=== PATIENT | female | born 1990 | race American Indian/Alaskan Native ===

== ENCOUNTER 2019-12-08 10:35 | Emergency (ER) | payer BC ==
[2019-12-08 10:49] VITALS: BP 139/86
--- NOTE | 2019-12-08 12:08 | Emergency Department Report ---
- General Chief Complaint: Upper Respiratory Infection Stated Complaint: TOREY Time Seen by Provider: 12/08/19 11:55 Source: patient Mode of arrival: Ambulatory Limitations: No Limitations - History of Present Illness Initial Comments: Patient is a 29-year-old female presents emergency room complaints of shortness of breath that began 3 days ago. She states that she has associated mild dry cough, generalized body aches, loss of sense of smell and taste. Patient states that she went to an urgent care 3 days ago and was given a steroid injection and albuterol inhaler. Patient states that she was tested for COVID-19 on November 17 and states it was negative. She denies any fever, nausea, vomiting, diarrhea, chest pain, leg swelling. She denies any known sick contacts, recent travel, recent surgery, hormone use. She is a non-smoker. She denies any past medical history. She denies allergies medications. Last menstrual cycle 11/29/2019. - Related Data Allergies Allergy/AdvReac Type Severity Reaction Status Date / Time No Known Allergies Allergy Unverified 12/08/19 10:42 ED Review of Systems ROS: Stated complaint: TOREY Other details as noted in HPI Comment: All other systems reviewed and negative ED Past Medical Hx - Past Medical History Previous Medical History?: No - Surgical History Past Surgical History?: No - Social History Smoking Status: Never Smoker Substance Use Type: Alcohol ED Physical Exam - General Limitations: No Limitations General appearance: alert, in no apparent distress - Head Head exam: Present: atraumatic, normocephalic - Eye Eye exam: Present: normal appearance - ENT ENT exam: Present: mucous membranes moist - Respiratory Respiratory exam: Present: normal lung sounds bilaterally. Absent: respiratory distress, wheezes, rales, rhonchi, stridor, chest wall tenderness, accessory muscle use, decreased breath sounds, prolonged expiratory - Cardiovascular Cardiovascular Exam: Present: regular rate, normal rhythm, normal heart sounds. Absent: systolic murmur, diastolic murmur, rubs, gallop - Neurological Exam Neurological exam: Present: alert, oriented X3 - Psychiatric Psychiatric exam: Present: normal affect, depressed - Skin Skin exam: Present: warm, dry, intact ED Course Vital Signs 12/08/19 12/08/19 10:48 10:49 Temperature 99.5 F 99.5 F Pulse Rate 103 H 103 H Respiratory 18 18 Rate Blood Pressure 139/86 Blood Pressure 139/86 [Right] O2 Sat by Pulse 99 99 Oximetry - Reevaluation(s) Reevaluation #1: 12/08/19 12:36 I ambulated patient down the hallway and oxygen remained 100% on room air, patient's heart rate was between 120 and 130, patient states that she feels shortness of breath and chest tightness, labs and EKG ordered ED Medical Decision Making - Lab Data Result diagrams: 12/08/19 12:54 12/08/19 12:54 Lab Results 12/08/19 12/08/19 12/08/19 Range/Units 12:54 12:54 12:54 WBC 4.9 (4.5-11.0) K/mm3 RBC 4.38 (3.65-5.03) M/mm3 Hgb 13.9 (10.1-14.3) gm/dl Hct 39.4 (30.3-42.9) % MCV 90 (79-97) fl MCH 32 (28-32) pg MCHC 35 H (30-34) % RDW 14.2 (13.2-15.2) % Plt Count 309 (140-440) K/mm3 Lymph % (Auto) 22.5 (13.4-35.0) % Barnes % (Auto) 8.9 H (0.0-7.3) % Eos % (Auto) 0.2 (0.0-4.3) % Baso % (Auto) 0.6 (0.0-1.8) % Lymph # 1.1 L (1.2-5.4) K/mm3 Barnes # 0.4 (0.0-0.8) K/mm3 Eos # 0.0 (0.0-0.4) K/mm3 Baso # 0.0 (0.0-0.1) K/mm3 Seg Neutrophils % 67.8 (40.0-70.0) % Seg Neutrophils # 3.3 (1.8-7.7) K/mm3 D-Dimer < 135.00 (0-234) ng/mlDDU Sodium 138 (137-145) mmol/L Potassium 3.6 (3.6-5.0) mmol/L Chloride 100.8 (98-107) mmol/L Carbon Dioxide 24 (22-30) mmol/L Anion Gap 17 mmol/L BUN 11 (7-17) mg/dL Creatinine 0.8 (0.7-1.2) mg/dL Estimated GFR > 60 ml/min BUN/Creatinine Ratio 14 % Glucose 78 (65-100) mg/dL Calcium 8.8 (8.4-10.2) mg/dL Magnesium (1.7-2.3) mg/dL Total Bilirubin 0.30 (0.1-1.2) mg/dL AST 23 (5-40) units/L ALT 38 (7-56) units/L Alkaline Phosphatase 59 (35-129) units/L Total Creatine Kinase (30-135) units/L Troponin T < 0.010 (0.00-0.029) ng/mL Total Protein 7.3 (6.3-8.2) g/dL Albumin 4.0 (3.9-5) g/dL Albumin/Globulin Ratio 1.2 % TSH (0.270-4.200) mlU/mL 12/08/19 12/08/19 Range/Units 12:54 12:54 WBC (4.5-11.0) K/mm3 RBC (3.65-5.03) M/mm3 Hgb (10.1-14.3) gm/dl Hct (30.3-42.9) % MCV (79-97) fl MCH (28-32) pg MCHC (30-34) % RDW (13.2-15.2) % Plt Count (140-440) K/mm3 Lymph % (Auto) (13.4-35.0) % Barnes % (Auto) (0.0-7.3) % Eos % (Auto) (0.0-4.3) % Baso % (Auto) (0.0-1.8) % Lymph # (1.2-5.4) K/mm3 Barnes # (0.0-0.8) K/mm3 Eos # (0.0-0.4) K/mm3 Baso # (0.0-0.1) K/mm3 Seg Neutrophils % (40.0-70.0) % Seg Neutrophils # (1.8-7.7) K/mm3 D-Dimer (0-234) ng/mlDDU Sodium (137-145) mmol/L Potassium (3.6-5.0) mmol/L Chloride (98-107) mmol/L Carbon Dioxide (22-30) mmol/L Anion Gap mmol/L BUN (7-17) mg/dL Creatinine (0.7-1.2) mg/dL Estimated GFR ml/min BUN/Creatinine Ratio % Glucose (65-100) mg/dL Calcium (8.4-10.2) mg/dL Magnesium 2.00 (1.7-2.3) mg/dL Total Bilirubin (0.1-1.2) mg/dL AST (5-40) units/L ALT (7-56) units/L Alkaline Phosphatase (35-129) units/L Total Creatine Kinase 73 (30-135) units/L Troponin T (0.00-0.029) ng/mL Total Protein (6.3-8.2) g/dL Albumin (3.9-5) g/dL Albumin/Globulin Ratio % TSH 1.020 (0.270-4.200) mlU/mL - EKG Data EKG shows normal: sinus rhythm, intervals, QRS complexes, ST-T waves Rate: normal - EKG Data 12/08/19 15:02 LAD no STEMI - Radiology Data Radiology results: report reviewed CHEST 2 VIEWS INDICATION / CLINICAL INFORMATION: SOB. Not feeling well since . COMPARISON: None available. FINDINGS: SUPPORT DEVICES: None. HEART / MEDIASTINUM: The heart size and pulmonary vasculature are normal. LUNGS / PLEURA: No significant pulmonary or pleural abnormality. No pneumothorax. ADDITIONAL FINDINGS: No significant additional findings. IMPRESSION: No acute findings. Signer Name: Ollie Hernandez MD Signed: 12/08/2019 12:09 PM Workstation Name: [id number] Transcribed By: RT Dictated By: Ollie Hernandez MD Electronically Authenticated By: Ollie Hernandez MD Signed Date/Time: 12/08/19 120 DD/ 1208 TD/TT: - Medical Decision Making Patient is a 29-year-old female presents emergency room complaints of shortness of breath that began 3 days ago. She states that she has associated mild dry cough, generalized body aches, loss of sense of smell and taste. Patient states that she went to an urgent care 3 days ago and was given a steroid injection and albuterol inhaler. Patient states that she was tested for COVID-19 on November 17 and states it was negative. She denies any fever, nausea, vomiting, diarrhea, chest pain, leg swelling. She denies any known sick contacts, recent travel, recent surgery, hormone use. She is a non-smoker. She denies any past medical history. She denies allergies medications. Last menstrual cycle 11/29/2019. Initial vitals with mildly elevated heart rate. Chest x-ray with no acute process. Lungs are clear bilaterally, no wheezing, no rales, no rhonchi. Patient was ambulated in the emergency department for 2 minutes and maintain sats of 100% on room air, upon ambulation her heart rate did increase. Labs and EKG ordered. EKG shows normal heart rate and within normal limits. Labs are normal. No anemia, d-dimer is negative, troponin is negative. Patient low risk based on Wells criteria for PE. Her heart rate was normal and her EKG. Given that patient is presenting with URI symptoms during COVID-19 pandemic, discussed self quarantine with patient, discussed in detail with patient very strict return precautions, discussed supportive care and symptomatic treatment importance of oral hydration. Advised patient Please increase your fluid intake over the next several days. May take Tylenol as needed for fever or body aches. May take afpz-dgi-pocxrfb cold symptom relief medication such as Mucinex or TheraFlu. Get plenty of rest. Follow-up with a primary care doctor for reexamination. Return to emergency room immediately for any new or worsening symptoms including but not limited to difficulty breathing, shortness of breath, severe chest pain, unable to tolerate by mouth intake, etc. Please self quarantine for 2 weeks from the onset of your symptoms. Please do not go out in public. If you are around others at home please wear a mask. If you need to cough or sneeze please do so in a napkin and immediately throw it away and immediately wash your hands. Wash your hands frequently. Wipe everything down. Recommend for you to get COVID-19 testing, may have this done at primary care doctor, health department, [facility] testing centers. - Differential Diagnosis URI, PNA, ACS, CHF, pleural effusion, pericarditis, PE, bronchitis, asthma Critical care attestation.: If time is entered above; I have spent that time in minutes in the direct care of this critically ill patient, excluding procedure time. ED Disposition Clinical Impression: Shortness of breath Upper respiratory infection Qualifiers: URI type: unspecified URI Qualified Code(s): J06.9 - Acute upper respiratory infection, unspecified Disposition: DC-01 TO HOME OR SELFCARE Is pt being admited?: No Does the pt Need Aspirin: No Condition: Stable Instructions: COVID-19, Viral Syndrome (ED) Additional Instructions: Please increase your fluid intake over the next several days. May take Tylenol as needed for fever or body aches. May take zqch-yli-lqvvqko cold symptom relief medication such as Mucinex or TheraFlu. Get plenty of rest. Follow-up with a primary care doctor for reexamination. Return to emergency room immediately for any new or worsening symptoms including but not limited to difficulty breathing, shortness of breath, severe chest pain, unable to tolerate by mouth intake, etc. Please self quarantine for 2 weeks from the onset of your symptoms. Please do not go out in public. If you are around others at home please wear a mask. If you need to cough or sneeze please do so in a napkin and immediately throw it away and immediately wash your hands. Wash your hands frequently. Wipe everything down. Recommend for you to get COVID-19 testing, may have this done at primary care doctor, health department, [facility] testing centers. Referrals: MARY ROBERTS MD [Staff Physician] - 2-[address] [facility] [Provider Group] - 2-3 Days [facility] [place] [Outside] - 2-3 Days [facility] [Outside] - 2-3 Days Time of Disposition: 15:03 Print Language: FRISIAN
--- NOTE | 2019-12-08 12:14 | XRay Report ---
CHEST 2 VIEWS INDICATION / CLINICAL INFORMATION: SOB. Not feeling well since . COMPARISON: None available. FINDINGS: SUPPORT DEVICES: None. HEART / MEDIASTINUM: The heart size and pulmonary vasculature are normal. LUNGS / PLEURA: No significant pulmonary or pleural abnormality. No pneumothorax. ADDITIONAL FINDINGS: No significant additional findings. IMPRESSION: No acute findings. Signer Name: Ollie Hernandez MD Signed: 12/08/2019 12:09 PM Workstation Name: [id number]
[2019-12-08 13:21] LABS: Basophils % (Auto) 0.6 % (0.0-1.8); Eosinophils % (Auto) 0.2 % (0.0-4.3); Hematocrit 39.4 % (30.3-42.9); Hemoglobin 13.9 gm/dl (10.1-14.3); Lymphocytes # (Auto) 1.1 K/mm3 (1.2-5.4); Lymphocytes % (Auto) 22.5 % (13.4-35.0); Mean Corpuscular HGB Conc 35 % (30-34); Mean Corpuscular Volume 90 fl (79-97); Monocytes # (Auto) 0.4 K/mm3 (0.0-0.8); Monocytes % (Auto) 8.9 % (0.0-7.3); Platelet Count 309 K/mm3 (140-440); Red Blood Count 4.38 M/mm3 (3.65-5.03); Red Cell Distribution Width 14.2 % (13.2-15.2)
[2019-12-08 13:40] LABS: Alanine Aminotransferase 38 units/L (7-56); BUN/Creatinine Ratio 14; Blood Urea Nitrogen 11 mg/dL (7-17); Calcium 8.8 mg/dL (8.4-10.2); Hemolysis Index 28
== END 2019-12-08 15:10 | disposition home or self-care (01) ==
LOC: ED 10:35
DX: J06.9 Acute upper respiratory infection, unspecified (principal)
CPT/HCPCS: 36415; 71046; 80053; 82550; 83735; 84443; 84484; 85025; 85379; 93005

== ENCOUNTER 2020-09-20 21:20 | Emergency (ER) | payer SELFPAY ==
[2020-09-20 21:37] VITALS: BP 126/91
[2020-09-20] MEDS ORDERED: diphenhydrAMINE 50 MG/ML VIAL IV ONE (22:44)
[2020-09-20] MEDS ORDERED: dexAMETHasone 20 MG/5 ML VIAL IV ONE (22:44)
[2020-09-20] MEDS ORDERED: FAMOTIDINE 20 MG/2 ML INJ IV ONE (22:44)
--- NOTE | 2020-09-20 22:47 | Emergency Department Report ---
ED Rash HPI - HPI Chief Complaint: Skin Rash Stated Complaint: POSSIBLE ALLERGIC REACTION/RASH Time Seen by Provider: 09/20/20 22:41 Duration: Today Rash Symptoms: Yes Itching, No Facial Swelling, No Tongue/Oral Swelling, No Breathing Difficulties, No Choking Sensation, No Wheezing/Dyspnea, No Peeling, No Blistering, No Fever, No Lightheaded, No Malaise, No Myalgias Severity: moderate Other History: 63-ravg[age]ypr-month-old obese -[place] female presents to the emergency room for 1 day history of rash that is itchy red bumps. Patient states that it started today. States that she last took Benadryl 4 hours ago. She reports that the rash is all over. She denies any shortness of breath, no wheezing, no difficulty swallowing no shortness of breath. Patient denies any new foods, new detergents, new body wash, no new soaps. She states she did get fully vaccinated for Covid 2 weeks ago. She reports ironically her sister is has the same rash that started today as well. ED Review of Systems ROS: Stated complaint: POSSIBLE ALLERGIC REACTION/RASH Other details as noted in HPI ED Past Medical Hx - Past Medical History Previous Medical History?: No - Surgical History Past Surgical History?: No - Social History Smoking Status: Never Smoker Substance Use Type: None - Medications Home Medications: Home Medications Medication Instructions Recorded Confirmed Last Taken Type Ibuprofen [Motrin 800 MG tab] 800 mg PO Q8HR PRN #30 tablet 12/15/19 Unknown Rx dexAMETHasone [Decadron] 4 mg PO Q12H 2 Days #4 tablet 12/15/19 Unknown Rx guaiFENesin/CODEINE [Robitussin AC] 5 ml PO Q6H PRN #120 ml 12/15/19 Unknown Rx Cetirizine HCl 10 mg PO QDAY 10 Days #10 tablet 09/20/20 Unknown Rx Famotidine [Pepcid] 20 mg PO BID 10 Days #20 tablet 09/20/20 Unknown Rx predniSONE [Deltasone] 40 mg PO QDAY 5 Days #10 tab 09/20/20 Unknown Rx Rash Exam - Exam General: Vital signs noted. No distress. Alert and acting appropriately. HEENT: No Periorbital Edema, No Conjuctival Injection, No Chemosis, No Perioral Edema, No Tongue Edema, No Uvular Edema, No Compromised Airway, No Drooling Lungs: Yes Good Air Exchange (Normal Breath Sounds), No Wheezes, No Ronchi, No Stridor, No Cough, No Labored Respirations, No Retractions, No Use of Accessory Muscles, No Other Abnormal Lung Sounds Heart: Yes Regular, No Murmur Skin: Yes Urticarial Rash, Yes Erythema Other: Positive: Abdomen Normal, Neurologic Normal, Musculoskeletal Normal ED Course Vital Signs 09/20/20 21:34 Temperature 98 F Pulse Rate 98 H Respiratory 16 Rate Blood Pressure 126/91 O2 Sat by Pulse 98 Oximetry ED Medical Decision Making - Medical Decision Making 81-mxpi[age]kuo-month-old obese -[place] female presents to the emergency room for 1 day history of rash that is itchy red bumps. Patient states that it started today. States that she last took Benadryl 4 hours ago. She reports that the rash is all over. She denies any shortness of breath, no wheezing, no difficulty swallowing no shortness of breath. Patient denies any new foods, new detergents, new body wash, no new soaps. She states she did get fully vaccinated for Covid 2 weeks ago. She reports ironically her sister is has the same rash that started today as well. Patient is an alert IV, Benadryl 25 mg IV, dexamethasone 10 mg IV and Pepcid 20 mg IV. Patient reports that she prefers the p.o. medication as she does not have time to wait. Discussed with patient to return if any worsening symptoms. Critical care attestation.: If time is entered above; I have spent that time in minutes in the direct care of this critically ill patient, excluding procedure time. ED Disposition Clinical Impression: Urticaria, Allergic reaction Disposition: DC-01 TO HOME OR SELFCARE Is pt being admited?: No Does the pt Need Aspirin: No Condition: Stable Instructions: Hives, Pztu-on-[id number] Additional Instructions: Please take medications as prescribed. Return back to the emergency room if any worsening symptoms. Prescriptions: Cetirizine HCl 10 mg PO QDAY 10 Days #10 tablet predniSONE [Deltasone] 40 mg PO QDAY 5 Days #10 tab Famotidine [Pepcid] 20 mg PO BID 10 Days #20 tablet Referrals: MARTÍN GASPAR MD [Referring] - 3-5 Days [facility] [Provider Group] - 3-5 Days [facility] [Provider Group] - 3-5 Days Forms: Work/School Release Form(ED)
== END 2020-09-21 00:27 | disposition home or self-care (01) ==
LOC: ED 21:20
DX: T78.40XA Allergy, unspecified, initial encounter (principal); L50.9 Urticaria, unspecified; Z79.899 Other long term (current) drug therapy; X58.XXXA Exposure to other specified factors, initial encounter
CPT/HCPCS: 99282

== ENCOUNTER 2021-04-29 10:53 | Emergency (ER) | payer SELFPAY ==
[2021-04-29] MEDS ORDERED: SODIUM CHLORIDE 0.9% 1000 ML 1,000 ML IV ONE (11:34)
[2021-04-29] MEDS ORDERED: IPRATROPIUM/ALBUTEROL SULFATE 3 ML AMPUL.NEB IH ONE (11:35)
[2021-04-29] MEDS ORDERED: HYDROCORTISONE SOD SUCC 100 MG/2 ML VIAL IV ONE (11:35)
[2021-04-29 13:15] LABS: Basophils # (Auto) 0.1 K/mm3 (0.0-0.1); Basophils % (Auto) 0.7 % (0.0-1.8); Eosinophils # (Auto) 0.1 K/mm3 (0.0-0.4); Eosinophils % (Auto) 1.5 % (0.0-4.3); Hematocrit 40.4 % (30.3-42.9); Hemoglobin 13.7 gm/dl (10.1-14.3); Lymphocytes # (Auto) 1.6 K/mm3 (1.2-5.4); Lymphocytes % (Auto) 19.4 % (13.4-35.0); Mean Corpuscular HGB Conc 34 % (30-34); Mean Corpuscular Volume 89 fl (79-97); Monocytes # (Auto) 0.6 K/mm3 (0.0-0.8); Monocytes % (Auto) 7.2 % (0.0-7.3); Platelet Count 341 K/mm3 (140-440); Red Blood Count 4.54 M/mm3 (3.65-5.03); Red Cell Distribution Width 13.5 % (13.2-15.2)
[2021-04-29 13:23] LABS: Alanine Aminotransferase 36 units/L (7-56); Albumin 3.7 g/dL (3.9-5); Blood Urea Nitrogen 8 mg/dL (7-17); Hemolysis Index 6
[2021-04-29 13:31] LABS: BUN/Creatinine Ratio 13
--- NOTE | 2021-04-29 14:16 | XRay Report ---
CHEST 2 VIEWS INDICATION: cough x 2 weeks. COMPARISON: 12/15/2019 FINDINGS: Support devices: None. Heart: Within normal limits. Lungs/pleura: No acute air space or interstitial disease. No pneumothorax. Additional findings: None. IMPRESSION: No acute findings. Signer Name: Jay Hall Jr, MD Signed: 04/29/2021 2:11 PM Workstation Name: [id number]
--- NOTE | 2021-04-29 14:31 | Emergency Department Report ---
- General Chief Complaint: Dyspnea/Respdistress Stated Complaint: SOB Time Seen by Provider: 04/29/21 11:26 Source: patient Mode of arrival: Ambulatory Limitations: No Limitations - History of Present Illness Initial Comments: Patient is a 30-year-old female presents emergency room with complaints of a cough that began 2 weeks ago. She states she has mucus production. She has a ssociated shortness of breath and lightheadedness. She denies any vomiting, diarrhea, chest pain, leg swelling, calf pain. No past medical history. No allergies to medications. She is a non-smoker. She denies any known sick contacts or recent travel. She reports she has been fully vaccinated for COVID- 19. She states that she tested negative for COVID-19. - Related Data Previous Rx's Medication Instructions Recorded Last Taken Type Ibuprofen [Motrin 800 MG tab] 800 mg PO Q8HR PRN #30 tablet 12/15/19 Unknown Rx dexAMETHasone [Decadron] 4 mg PO Q12H 2 Days #4 tablet 12/15/19 Unknown Rx guaiFENesin/CODEINE [Robitussin AC] 5 ml PO Q6H PRN #120 ml 12/15/19 Unknown Rx Cetirizine HCl 10 mg PO QDAY 10 Days #10 tablet 09/20/20 Unknown Rx Famotidine [Pepcid] 20 mg PO BID 10 Days #20 tablet 09/20/20 Unknown Rx predniSONE [Deltasone] 40 mg PO QDAY 5 Days #10 tab 09/20/20 Unknown Rx Albuterol Sulfate [Proventil Hfa] 1 puff IH TID PRN #1 hfa.aer.ad 04/29/21 Unknown Rx Azithromycin [Zithromax TAB] 250 mg PO QDAY 5 Days #6 tablet 04/29/21 Unknown Rx Benzonatate [Tessalon Perles] 100 mg PO Q8HR PRN #10 capsule 04/29/21 Unknown Rx Prednisone [predniSONE 10 mg 10 mg PO .TAPER #1 tab.ds.pk 04/29/21 Unknown Rx (6-Day Pack, 21 Tabs)] guaiFENesin ER [Mucinex ER] 600 mg PO Q12H #14 tablet.er 04/29/21 Unknown Rx Allergies Allergy/AdvReac Type Severity Reaction Status Date / Time No Known Allergies Allergy Verified 04/29/21 11:30 ED Review of Systems ROS: Stated complaint: SOB Other details as noted in HPI Comment: All other systems reviewed and negative ED Past Medical Hx - Past Medical History Previous Medical History?: No - Surgical History Past Surgical History?: No - Social History Smoking Status: Never Smoker Substance Use Type: None - Medications Home Medications: Home Medications Medication Instructions Recorded Confirmed Last Taken Type Ibuprofen [Motrin 800 MG tab] 800 mg PO Q8HR PRN #30 tablet 12/15/19 04/29/21 Unknown Rx dexAMETHasone [Decadron] 4 mg PO Q12H 2 Days #4 tablet 12/15/19 04/29/21 Unknown Rx guaiFENesin/CODEINE [Robitussin AC] 5 ml PO Q6H PRN #120 ml 12/15/19 04/29/21 Unknown Rx Cetirizine HCl 10 mg PO QDAY 10 Days #10 tablet 09/20/20 04/29/21 Unknown Rx Famotidine [Pepcid] 20 mg PO BID 10 Days #20 tablet 09/20/20 04/29/21 Unknown Rx predniSONE [Deltasone] 40 mg PO QDAY 5 Days #10 tab 09/20/20 04/29/21 Unknown Rx Albuterol Sulfate [Proventil Hfa] 1 puff IH TID PRN #1 hfa.aer.ad 04/29/21 Unknown Rx Azithromycin [Zithromax TAB] 250 mg PO QDAY 5 Days #6 tablet 04/29/21 Unknown Rx Benzonatate [Tessalon Perles] 100 mg PO Q8HR PRN #10 capsule 04/29/21 Unknown Rx Prednisone [predniSONE 10 mg 10 mg PO .TAPER #1 tab.ds.pk 04/29/21 Unknown Rx (6-Day Pack, 21 Tabs)] guaiFENesin ER [Mucinex ER] 600 mg PO Q12H #14 tablet.er 04/29/21 Unknown Rx ED Physical Exam - General Limitations: No Limitations General appearance: alert, in no apparent distress - Head Head exam: Present: atraumatic, normocephalic - Eye Eye exam: Present: normal appearance - ENT ENT exam: Present: mucous membranes moist - Respiratory Respiratory exam: Present: normal lung sounds bilaterally. Absent: respiratory distress, wheezes, rales, rhonchi, stridor, chest wall tenderness, accessory muscle use, decreased breath sounds, prolonged expiratory - Cardiovascular Cardiovascular Exam: Present: regular rate, normal rhythm, normal heart sounds. Absent: systolic murmur, diastolic murmur, rubs, gallop - Neurological Exam Neurological exam: Present: alert, oriented X3 - Psychiatric Psychiatric exam: Present: normal affect, normal mood - Skin Skin exam: Present: warm, dry, intact ED Course Vital Signs 04/29/21 04/29/21 04/29/21 10:57 11:32 14:48 Temperature 98.2 F 98.2 F 98.9 F Pulse Rate 98 H 89 87 Respiratory 18 121 H 16 Rate Blood Pressure 121/81 Blood Pressure 124/81 121/81 129/75 [Right] O2 Sat by Pulse 98 98 100 Oximetry ED Medical Decision Making - Lab Data Result diagrams: 04/29/21 12:04/29/21 12: Lab Results 04/29/21 04/29/21 04/29/21 Range/Units 12:21 12:21 12:21 WBC 8.1 (4.5-11.0) K/mm3 RBC 4.54 (3.65-5.03) M/mm3 Hgb 13.7 (10.1-14.3) gm/dl Hct 40.4 (30.3-42.9) % MCV 89 (79-97) fl MCH 30 (28-32) pg MCHC 34 (30-34) % RDW 13.5 (13.2-15.2) % Plt Count 341 (140-440) K/mm3 Lymph % (Auto) 19.4 (13.4-35.0) % [place] % (Auto) 7.2 (0.0-7.3) % Eos % (Auto) 1.5 (0.0-4.3) % Baso % (Auto) 0.7 (0.0-1.8) % Lymph # (Auto) 1.6 (1.2-5.4) K/mm3 [place] # (Auto) 0.6 (0.0-0.8) K/mm3 Eos # (Auto) 0.1 (0.0-0.4) K/mm3 Baso # (Auto) 0.1 (0.0-0.1) K/mm3 Seg Neutrophils % 71.2 H (40.0-70.0) % Seg Neutrophils # 5.8 (1.8-7.7) K/mm3 Sodium 138 (137-145) mmol/L Potassium 4.0 (3.6-5.0) mmol/L Chloride 102.0 (98-107) mmol/L Carbon Dioxide 25 (22-30) mmol/L Anion Gap 15 mmol/L BUN 8 (7-17) mg/dL Creatinine 0.6 (0.6-1.2) mg/dL Estimated GFR > 60 ml/min BUN/Creatinine Ratio 13 % Glucose 77 (65-100) mg/dL Calcium 9.0 (8.4-10.2) mg/dL Total Bilirubin 0.30 (0.1-1.2) mg/dL AST 21 (5-40) units/L ALT 36 (7-56) units/L Alkaline Phosphatase 71 (35-129) units/L Total Protein 6.8 (6.3-8.2) g/dL Albumin 3.7 L (3.9-5) g/dL Albumin/Globulin Ratio 1.2 % HCG, Qual Negative (Negative) Vital Signs 04/29/21 04/29/21 04/29/21 10:57 11:32 14:48 Temperature 98.2 F 98.2 F 98.9 F Pulse Rate 98 H 89 87 Respiratory 18 121 H 16 Rate Blood Pressure 121/81 Blood Pressure 124/81 121/81 129/75 [Right] O2 Sat by Pulse 98 98 100 Oximetry - Radiology Data Radiology results: report reviewed Ordering Physician: MERVAT LUNA Date of Service: 04/29/21 Procedure(s): XR chest routine 2V Accession Number(s): [id number] cc: MERVAT LUNA Fluoro Time In Minutes: CHEST 2 VIEWS INDICATION: cough x 2 weeks. COMPARISON: 12/15/2019 FINDINGS: Support devices: None. Heart: Within normal limits. Lungs/pleura: No acute air space or interstitial disease. No pneumothorax. Additional findings: None. IMPRESSION: No acute findings. Signer Name: Jay Hall Jr, MD Signed: 04/29/2021 2:11 PM Workstation Name: [id number] Transcribed By: TTR Dictated By: JAY HALL JR, MD Electronically Authenticated By: JAY HALL JR, MD Signed Date/Time: 04/29/21 1411 DD/ 10 TD/TT: - Medical Decision Making Patient is a 30-year-old female presents emergency room with complaints of a cough that began 2 weeks ago. She states she has mucus production. She has associated shortness of breath and lightheadedness. She denies any vomiting, diarrhea, chest pain, leg swelling, calf pain. No past medical history. No allergies to medications. She is a non-smoker. She denies any known sick contacts or recent travel. She reports she has been fully vaccinated for COVID-19. She states that she tested negative for COVID-19. Vitals are normal. Breath sounds are clear bilaterally. Chest x-ray No acute findings. Patient has had symptoms ongoing for 2 weeks, she is having a productive cough with a change in mucus, patient will be covered for bacterial bronchitis. Patient given prescription for medication. Advised patient Please take medication as prescribed. Please increase your fluid intake. Follow-up with your primary care doctor. Return to emergency room for any new or worsening symptoms. Critical care attestation.: If time is entered above; I have spent that time in minutes in the direct care of this critically ill patient, excluding procedure time. ED Disposition Clinical Impression: Acute bronchitis Qualifiers: Bronchitis organism: unspecified organism Qualified Code(s): J20.9 - Acute bronchitis, unspecified Disposition: 01 HOME / SELF CARE / HOMELESS Is pt being admited?: No Does the pt Need Aspirin: No Condition: Stable Instructions: Acute Bronchitis, Adult, Acute Bronchitis (ED) Additional Instructions: Please take medication as prescribed. Please increase your fluid intake. Follow-up with your primary care doctor. Return to emergency room for any new or worsening symptoms. Prescriptions: guaiFENesin ER [Mucinex ER] 600 mg PO Q12H #14 tablet.er Prednisone [predniSONE 10 mg (6-Day Pack, 21 Tabs)] 10 mg PO .TAPER #1 tab.ds.pk Albuterol Sulfate [Proventil Hfa] 1 puff IH TID PRN #1 hfa.aer.ad PRN Reason: shortness of breath/wheezing Benzonatate [Tessalon Perles] 100 mg PO Q8HR PRN #10 capsule PRN Reason: cough Azithromycin [Zithromax TAB] 250 mg PO QDAY 5 Days #6 tablet Referrals: PRIMARY CARE, [Primary Care Provider] - 3-5 Days Time of Disposition: 14:28 Print Language: UZBEK
[2021-04-29 14:49] VITALS: BP 129/75
== END 2021-04-29 14:49 | disposition home or self-care (01) ==
LOC: ED 10:53
DX: J20.9 Acute bronchitis, unspecified (principal)
CPT/HCPCS: 36415; 71046; 80053; 84703; 85025; 99284; Q0162; J1720; J7030